=== PATIENT | male | born 1940 | race Two or more races ===

== ENCOUNTER 2022-11-02 12:47 | Inpatient (IN) | payer MEDICARE, OTHER ==
[~2022-11-02] VITALS: Ht 167.6 cm; Wt 74.4 kg
[2022-11-02 13:25] LABS: BASOPHILS % (AUTO) 0.2 % (0.0-2.0); EOSINOPHILS % (AUTO) 0.1 % (0.0-6.0); HEMATOCRIT 45 % (39-51); HEMOGLOBIN 14.7 g/dL (13.5-17.5); LYMPHOCYTES # (AUTO) 1.1 K/uL (0.8-4.8); MEAN CORPUSCULAR HEMOGLOBIN 27 PG (26.0-33.0); MEAN CORPUSCULAR HGB CONC 33 g/dl (31.0-36.0); MEAN CORPUSCULAR VOLUME 82 fL (80-96); MONOCYTES % (AUTO) 8.8 % (2.0-12.0); NEUTROPHILS # (AUTO) 9.6 K/uL (1.8-8.9); NEUTROPHILS % (AUTO) 81.9 % (43.0-81.0); PLATELET COUNT (AUTO) 148 K/uL (150-450); RED BLOOD CELL COUNT(AUTO) 5.44 MIL/uL (4.5-6.0); RED CELL DISTRIBUTION WIDTH 15.1 % (11.5-15.0); WHITE BLOOD COUNT (AUTO) 11.7 K/uL (4.3-11.0)
[2022-11-02] MEDS ORDERED: ONDANSETRON HCL/PF 4 MG/2 ML VIAL IV ONE (13:30)
[2022-11-02] MEDS ORDERED: IV NS 0.9% 1,000 ML IV ONE (13:30)
[2022-11-02] MEDS ORDERED: MORPHINE SULFATE INJ 2 MG/ML DISP.SYRIN IV ONE (13:30)
[2022-11-02 13:35] LABS: CALCIUM, SERUM 9.2 mg/dL (8.5-10.1); CARBON DIOXIDE 25 mmol/L (21-32); CHLORIDE 97 mmol/L (98-107); CREATININE 3.9 mg/dL (0.6-1.3); GLUCOSE 101 mg/dL (74-106); POTASSIUM 4.3 mmol/L (3.5-5.1); SODIUM SERUM 133 mmol/L (136-145); UREA NITROGEN, BLOOD 51 mg/dL (7-18)
[2022-11-02 13:41] LABS: ALANINE AMINOTRANSFERASE 27 U/L (12-78); ALBUMIN 3.5 g/dL (3.4-5.0); ALKALINE PHOSPHATASE 79 U/L (46-116); ASPARTATE AMINOTRANSFERASE 30 U/L (15-37); BILIRUBIN,DIRECT 0.3 mg/dL (0.0-0.2); BILIRUBIN,TOTAL 1.1 mg/dL (0.2-1.0); LIPASE 74 U/L (73-393); TOTAL PROTEIN, SERUM 7.8 g/dL (6.4-8.2)
[2022-11-02] MEDS ORDERED: ZOLP5TAB8 PO (13:52)
[2022-11-02] MEDS ORDERED: EZET10TA16 PO (13:52)
[2022-11-02] MEDS ORDERED: ROSU20TA2 PO (13:52)
[2022-11-02] MEDS ORDERED: ASPI-1169 PO (13:52)
[2022-11-02 14:38] LABS: APPEARANCE,URINE CLEAR (CLEAR); BILIRUBIN,URINE NEGATIVE (NEGATIVE); BLOOD, URINE 3+ Ery/uL (NEGATIVE); COLOR,URINE YELLOW (YELLOW); KETONES,URINE NEGATIVE (NEGATIVE); LEUKOCYTE ESTERASE ,URINE NEGATIVE (NEGATIVE); NITRITE, URINE NEGATIVE (NEGATIVE); PROTEIN,URINE TRACE mg/dl (NEGATIVE); UGLUCOSE NEGATIVE (NEGATIVE); UROBILINOGEN,URINE 0.2 EU/dL (0.2)
[2022-11-02] MEDS ORDERED: MORPHINE SULFATE INJ 4 MG/ML DISP.SYRIN ONE (14:47)
[2022-11-02] MEDS ORDERED: ONDANSETRON HCL/PF 4 MG/2 ML VIAL ONE (14:47)
[2022-11-02] MEDS ORDERED: HYDROCODONE/APAP 5/325MG TABLET PO PRN (15:30)
[2022-11-02] MEDS ORDERED: MAGNESIUM HYDROXIDE 30 ML UDC PO PRN (15:30)
[2022-11-02] MEDS ORDERED: ACETAMINOPHEN 325 MG TABLET PO PRN (15:30)
[2022-11-02] MEDS ORDERED: ONDANSETRON HCL/PF 4 MG/2 ML VIAL IVP PRN (15:30)
[2022-11-02] MEDS ORDERED: Z GUARD REMEDY 4 OZ OINT TP PRN (15:30)
[2022-11-02] MEDS ORDERED: MAG HYDROX/AL HYDROX/SIMETH 30 ML UDC PO PRN (15:30)
[2022-11-02 15:35] LABS: RBC,URINE 51-80 /HPF (0-2)
[2022-11-02 15:36] LABS: ADD URINE CULTURE NO; BACTERIA,URINE RARE /HPF (None Seen); SQUAMOUS EPITHELIAL CELL,UR 0-2 /HPF (None Seen); WBC,URINE 0-2 /HPF (0-3); YEAST,URINE Few /HPF (None Seen)
[2022-11-02] MEDS: ZOLPIDEM TARTRATE 5 MG TABLET PO SCH (21:18)
[2022-11-02] MEDS: ATORVASTATIN 40 MG TABLET PO SCH (21:18)
[2022-11-02 23:01] VITALS: BP 109/75; TEMP 98; O2SAT 95
[2022-11-03] VITALS: BP 119/78; TEMP 98; O2SAT 93
[2022-11-03] MEDS: IV NS 0.9% 1,000 ML IV PRN ×2 (02:45→17:38)
[2022-11-03 04:00] VITALS: BP_SYST 104; BP_SYST 106; BP_DIAS 59; BP_DIAS 67; TEMP 98.1; TEMP 98.2; O2SAT 93; O2SAT 94
[2022-11-03 07:04] LABS: BASOPHILS % (AUTO) 0.2 % (0.0-2.0); EOSINOPHILS # (AUTO) 0.2 K/uL (0.0-0.7); EOSINOPHILS % (AUTO) 2.6 % (0.0-6.0); HEMATOCRIT 43 % (39-51); HEMOGLOBIN 13.9 g/dL (13.5-17.5); LYMPHOCYTES # (AUTO) 1.6 K/uL (0.8-4.8); LYMPHOCYTES % (AUTO) 20.9 % (20.0-44.0); MEAN CORPUSCULAR HEMOGLOBIN 27 PG (26.0-33.0); MEAN CORPUSCULAR HGB CONC 32 g/dl (31.0-36.0); MEAN CORPUSCULAR VOLUME 84 fL (80-96); MONOCYTES # (AUTO) 0.8 K/uL (0.1-1.30); MONOCYTES % (AUTO) 10.4 % (2.0-12.0); NEUTROPHILS # (AUTO) 4.9 K/uL (1.8-8.9); NEUTROPHILS % (AUTO) 65.9 % (43.0-81.0); PLATELET COUNT (AUTO) 149 K/uL (150-450); RED BLOOD CELL COUNT(AUTO) 5.09 MIL/uL (4.5-6.0); RED CELL DISTRIBUTION WIDTH 14.8 % (11.5-15.0); WHITE BLOOD COUNT (AUTO) 7.4 K/uL (4.3-11.0)
[2022-11-03 07:12] LABS: CHOLESTEROL 210 mg/dL (<200); HDL CHOLESTEROL 70 mg/dL (40-60); LDL 117 mg/dL (0-99); TRIGLYCERIDES 89 mg/dL (30-150)
[2022-11-03 07:22] LABS: CALCIUM, SERUM 8.7 mg/dL (8.5-10.1); CARBON DIOXIDE 26 mmol/L (21-32); CHLORIDE 106 mmol/L (98-107); GLUCOSE 88 mg/dL (74-106); PHOSPHORUS 3.4 mg/dL (2.5-4.9); POTASSIUM 4.2 mmol/L (3.5-5.1); SODIUM SERUM 139 mmol/L (136-145); UREA NITROGEN, BLOOD 39 mg/dL (7-18)
[2022-11-03 08:00] VITALS: BP 136/80; TEMP 97.7; O2SAT 92
[2022-11-03] MEDS: ASPIRIN 81 MG TAB.CHEW PO SCH (08:49)
[2022-11-03] MEDS: EZETIMIBE 10 MG TABLET PO SCH (08:49)
[2022-11-03] MEDS: PANTOPRAZOLE 40 MG TABLET.DR PO SCH (08:50)
[2022-11-03] MEDS: TAMSULOSIN 0.4 MG CAP.SR.24H PO SCH (08:50)
[2022-11-03 15:25] LABS: CREATININE, URINE 113.8 MG/DL (30.0-125.0); URINE TOTAL PROTEIN 31.3 mg/dL (0-11.9)
[2022-11-03 15:31] LABS: APPEARANCE,URINE SLIGHTLY CLOUDY (CLEAR); BILIRUBIN,URINE NEGATIVE (NEGATIVE); BLOOD, URINE 3+ Ery/uL (NEGATIVE); COLOR,URINE YELLOW (YELLOW); KETONES,URINE NEGATIVE (NEGATIVE); LEUKOCYTE ESTERASE ,URINE NEGATIVE (NEGATIVE); NITRITE, URINE NEGATIVE (NEGATIVE); PROTEIN,URINE 1+ mg/dl (NEGATIVE); UGLUCOSE NEGATIVE (NEGATIVE); UROBILINOGEN,URINE 0.2 EU/dL (0.2)
[2022-11-03 15:44] LABS: ADD URINE CULTURE NO; BACTERIA,URINE 1+ /HPF (None Seen); RBC,URINE 81-100 /HPF (0-2); SQUAMOUS EPITHELIAL CELL,UR Few /HPF (None Seen); WBC,URINE 0-2 /HPF (0-3)
[2022-11-03 15:46] LABS: EOSINOPHIL,URINE None Seen
[2022-11-03] MEDS: CARBAMIDE PEROXIDE OTIC 15 ML BOTTLE RIGHT EAR SCH (16:06)
[2022-11-03 20:00] VITALS: BP 110/63; TEMP 98.7; O2SAT 95
[2022-11-03] MEDS: ZOLPIDEM TARTRATE 5 MG TABLET PO SCH (21:04)
[2022-11-03] MEDS: ATORVASTATIN 40 MG TABLET PO SCH (21:04)
[2022-11-04] MEDS ORDERED: MAGNESIUM HYDROXIDE 30 ML UDC PO ONE (05:30)
[2022-11-04] MEDS: IV NS 0.9% 1,000 ML IV PRN (05:36)
[2022-11-04 06:05] LABS: BASOPHILS % (AUTO) 0.2 % (0.0-2.0); EOSINOPHILS # (AUTO) 0.3 K/uL (0.0-0.7); HEMATOCRIT 41 % (39-51); HEMOGLOBIN 13.1 g/dL (13.5-17.5); LYMPHOCYTES # (AUTO) 1.2 K/uL (0.8-4.8); LYMPHOCYTES % (AUTO) 16.4 % (20.0-44.0); MEAN CORPUSCULAR HEMOGLOBIN 27 PG (26.0-33.0); MEAN CORPUSCULAR HGB CONC 32 g/dl (31.0-36.0); MEAN CORPUSCULAR VOLUME 84 fL (80-96); MONOCYTES # (AUTO) 0.7 K/uL (0.1-1.30); NEUTROPHILS # (AUTO) 5.3 K/uL (1.8-8.9); NEUTROPHILS % (AUTO) 70.4 % (43.0-81.0); PLATELET COUNT (AUTO) 150 K/uL (150-450); RED BLOOD CELL COUNT(AUTO) 4.88 MIL/uL (4.5-6.0); RED CELL DISTRIBUTION WIDTH 14.9 % (11.5-15.0); WHITE BLOOD COUNT (AUTO) 7.5 K/uL (4.3-11.0)
[2022-11-04 06:36] LABS: ALBUMIN 2.5 g/dL (3.4-5.0); BILIRUBIN,TOTAL 0.8 mg/dL (0.2-1.0); CALCIUM, SERUM 8.4 mg/dL (8.5-10.1); CREATININE 1.3 mg/dL (0.6-1.3); MAGNESIUM 1.7 mg/dL (1.8-2.4); PHOSPHORUS 2.3 mg/dL (2.5-4.9); POTASSIUM 4.4 mmol/L (3.5-5.1)
[2022-11-04 07:00] VITALS: BP 124/73; TEMP 97.6; O2SAT 93
[2022-11-04] MEDS: PANTOPRAZOLE 40 MG TABLET.DR PO SCH (07:59)
[2022-11-04] MEDS: TAMSULOSIN 0.4 MG CAP.SR.24H PO SCH (08:30)
[2022-11-04] MEDS: EZETIMIBE 10 MG TABLET PO SCH (08:30)
[2022-11-04] MEDS ORDERED: MAGNESIUM OXIDE 400 MG TABLET PO ONE (08:30)
[2022-11-04] MEDS: ASPIRIN 81 MG TAB.CHEW PO SCH (08:31)
[2022-11-04] MEDS: CARBAMIDE PEROXIDE OTIC 15 ML BOTTLE RIGHT EAR SCH (08:33)
[2022-11-04] MEDS ORDERED: BISACODYL SUPP (10 MG) 10 MG/SUPP.RECT SUPP.RECT RC PRN (09:00)
[2022-11-04] MEDS ORDERED: Magnesium 1GM/D5W 100ML PREMIX 100 ML IV SCH (09:00)
[2022-11-04] MEDS ORDERED: MAGNESIUM HYDROXIDE 30 ML UDC PO PRN (09:00)
[2022-11-04] MEDS ORDERED: NEUTRA PHOS 1 POWD.PACKET PO SCH (09:00)
[2022-11-04] MEDS ORDERED: BISACODYL (5 MG) 5 MG TABLET.DR PO PRN (09:00)
[2022-11-04] MEDS ORDERED: FINA5TAB11 PO (09:24)
[2022-11-04] MEDS ORDERED: TAMS-12 PO (09:24)
[2022-11-06 07:07] LABS: PTH, INTACT 53 pg/mL (15-65)
[2022-11-06 09:08] LABS: *SPE A/G RATIO 0.9 (0.7-1.7); *SPE ALBUMIN 2.5 g/dL (2.9-4.4); *SPE ALPHA-1-GLOBULIN 0.3 g/dL (0.0-0.4); *SPE ALPHA-2-GLOBULIN 0.8 g/dL (0.4-1.0); *SPE BETA GLOBULIN 0.8 g/dL (0.7-1.3); *SPE GLOBULIN, TOTAL 2.9 g/dL (2.2-3.9); *SPE M-SPIKE Not Observed g/dL (Not Observed); *SPE PROTEIN TOTAL 5.4 g/dL (6.0-8.5); *SPEGAMMA GLOBULIN 1.1 g/dL (0.4-1.8)
== END 2022-11-04 11:43 | disposition home health service (06) | DRG 726 ==
LOC: ER 13:06 → MED 17:54
PROVIDERS: ADMIT Nurse Practitioner Acute Care; ATTEND Nurse Practitioner Acute Care
DX: N40.1 Benign prostatic hyperplasia with lower urinary tract symptoms (principal); N13.8 Other obstructive and reflux uropathy; N13.30 Unspecified hydronephrosis; E87.1 Hypo-osmolality and hyponatremia; N17.9 Acute kidney failure, unspecified; R33.8 Other retention of urine; E78.5 Hyperlipidemia, unspecified; I10 Essential (primary) hypertension; Z86.73 Personal history of transient ischemic attack (TIA), and cerebral infarction without residual deficits; K59.00 Constipation, unspecified; Z79.82 Long term (current) use of aspirin; Z79.899 Other long term (current) drug therapy; D72.829 Elevated white blood cell count, unspecified; E86.1 Hypovolemia; D69.6 Thrombocytopenia, unspecified; Z98.890 Other specified postprocedural states; H91.91 Unspecified hearing loss, right ear; N32.0 Bladder-neck obstruction
CPT/HCPCS: 36415; 71045-TC; 76770-TC; 80048-TC; 80053-TC; 80061-TC; 80076-TC; 81001; 82550-TC; 82570-TC; 83690-TC; 83735-TC; 83970; 84100-TC; 84155; 84165; 84300-TC; 85025-TC; 93307-TC; A4223; G0378; J2270; J2405; J7030